=== PATIENT | female | born 1965 | race Caucasian/White ===

== ENCOUNTER 2020-05-22 18:04 | Emergency (ER) | payer OTHER ==
[~2020-05-22] VITALS: Ht 165.1 cm; Wt 77.1 kg
[2020-05-22 18:40] VITALS: Ht 165.1 cm; Wt 77.1 kg
[2020-05-22 19:43] VITALS: BP 124/62
== END 2020-05-22 19:43 | disposition home or self-care (01) ==
LOC: ED 18:04
DX: S83.91XA Sprain of unspecified site of right knee, initial encounter (principal); I10 Essential (primary) hypertension; X58.XXXA Exposure to other specified factors, initial encounter; Y93.89 Activity, other specified; Y92.89 Other specified places as the place of occurrence of the external cause; Y99.8 Other external cause status
CPT/HCPCS: Q0092